=== PATIENT | male | born 1945 | race Caucasian/White ===

== ENCOUNTER 2017-03-06 21:12 | Emergency (ER) | payer OTHER ==
[~2017-03-06 21:12] MED LIST: COREG 12.5MG12.5 MG PO; COREG 3.125M3.125 MG PO; DIABETA 2.5 MG2.5 MG PO; DIABETA 5 MG TAB5 MG PO; EFFIENT10 MG PO; JANUVIA50 MG PO; LEVAQUIN750 MG PO; LIPITOR TAB 1010 MG PO; LYRICA100 MG PO; NORVASC 5 MG TAB5 MG PO; TAMIFLU75 MG PO; VENTOLIN HFA 66.7 GM INH
[2017-03-07 00:38] LABS: HEMOGLOBIN 14.7 gm/dl (14.0-17.5); RED BLOOD COUNT 5.17 M/UL (4.20-5.50)
== END 2017-03-07 03:35 | disposition short-term general hospital (02) ==
LOC: ER1 21:12
PROVIDERS: Student in an Organized Health Care Education/Training Program
DX: S82.001B Unspecified fracture of right patella, initial encounter for open fracture type I or II (principal); S22.42XA Multiple fractures of ribs, left side, initial encounter for closed fracture; I71.2 Thoracic aortic aneurysm, without rupture; R91.1 Solitary pulmonary nodule; N18.9 Chronic kidney disease, unspecified; I48.91 Unspecified atrial fibrillation; V49.40XA Driver injured in collision with unspecified motor vehicles in traffic accident, initial encounter; Y93.89 Activity, other specified; Y92.410 Unspecified street and highway as the place of occurrence of the external cause; Z88.1 Allergy status to other antibiotic agents; Z88.2 Allergy status to sulfonamides; Z88.8 Allergy status to other drugs, medicaments and biological substances; Z79.84 Long term (current) use of oral hypoglycemic drugs; Z79.899 Other long term (current) drug therapy
CPT/HCPCS: 36415; 70450; 71010; 71250; 72125; 73564; 80053; 83690; 85025; 85610; 85730; 93005; 96374; 99291; J3370